=== PATIENT | male | born 1950 | race African-American/Black ===

== ENCOUNTER 2018-07-14 16:13 | Inpatient (IN) ==
[2018-07-14] MEDS ORDERED: SODIUM CHLORIDE 0.9% 500 ML IV STA (16:26)
[2018-07-14 17:16] LABS: Basophils % 0.6 % (0.0-0.8); Eosinophils # 0.1 10*3/uL (0.0-0.87); Eosinophils % 1.6 % (0.00-10.9); Hematocrit 32.5 VOL% (42.0-52.0); Hemoglobin 10.6 GM/DL (14.0-18.0); Immature Granulocytes % 0.6 %; Immature Granulocytes Absolute 0.03 #; Lymphocytes # 1.3 10*3/uL (1.4-4.0); Mean Corpuscular HGB Conc 32.6 GM/DL (32-36); Mean Corpuscular Hemoglobin 36 PG (27-34); Mean Corpuscular Volume 110.2 FL (87-102); Mean Platelet Volume 8.6 FL (9.6-12.0); Monocytes # 0.5 10*3/uL (0.11-0.8); Monocytes % 10.9 % (1.7-12.7); Neutrophils % 60.3 % (38.7-73.9); Platelet Count 183 T/CUMM (130-400); Red Blood Count 2.95 MC/CUMM (3.8-5.5); Red Cell Distribution Width 14.7 % (9.3-17.3)
[2018-07-14 17:26] LABS: INR 0.9; Partial Thromboplastin Time 26.8 SECS (0-40)
[2018-07-14] MEDS ORDERED: THIAMINE INJ 100 MG, FOLIC ACID INJ 1 MG, MAGNESIUM SULF INJ 2 GM, MULTIVITAMIN INJ 10 ... IV STA (17:34)
[2018-07-14 17:41] LABS: Alanine Aminotransferase 18 U/L (16-61); Albumin 2.8 G/DL (3.4-5.0); Alkaline Phosphatase 73 U/L (45-117); Aspartate Amino Transferase 26 U/L (0-37); Bilirubin,Total < 0.39 MG/DL (0.2-1.0); Blood Urea Nitrogen 17 MG/DL (7-18); Calcium 8.4 MG/DL (8.5-10.1); Glucose 70 MG/DL (74-106); Osmolality,Calculated 274.7 MOS/KG (273-304); Potassium 4.4 MMOL/L (3.5-5.1); Sodium 138 MMOL/L (136-145); Total Protein 6.5 G/DL (6.4-8.3); Troponin I < 0.015 NG/ML (0.00-0.045)
[2018-07-14] MEDS ORDERED: ONDANSETRON 4 MG/2 ML VIAL IV PRN (18:46)
[2018-07-14] MEDS ORDERED: ACETAMINOPHEN 325 MG TABLET PO PRN (18:46)
[2018-07-14] MEDS: SIMVASTATIN 20 MG TABLET PO SCH (21:34)
[2018-07-14] MEDS: FAMOTIDINE 20 MG/2 ML VIAL IV SCH (21:35)
[2018-07-15] MEDS ORDERED: SKIN HEALING OINT (AQUAPHOR) 50 GM TUBE TOP PRN (00:26)
[2018-07-15 02:44] LABS: Basophils % 0.4 % (0.0-0.8); Eosinophils # 0.1 10*3/uL (0.0-0.87); Hematocrit 30.8 VOL% (42.0-52.0); Hemoglobin 10.2 GM/DL (14.0-18.0); Immature Granulocytes % 0.6 %; Immature Granulocytes Absolute 0.03 #; Lymphocytes # 1.3 10*3/uL (1.4-4.0); Lymphocytes % 25.8 % (21.2-54.2); Mean Corpuscular HGB Conc 33.1 GM/DL (32-36); Mean Corpuscular Hemoglobin 36 PG (27-34); Mean Platelet Volume 9.1 FL (9.6-12.0); Monocytes # 0.5 10*3/uL (0.11-0.8); Monocytes % 9.1 % (1.7-12.7); Neutrophils # 3.3 10*3/uL (1.4-7.4); Neutrophils % 63.1 % (38.7-73.9); Platelet Count 203 T/CUMM (130-400); Red Cell Distribution Width 14.6 % (9.3-17.3); White Blood Count 5.2 T/CUMM (4-12)
[2018-07-15 03:25] LABS: Thyroid Stimulating Hormone 2.19 uIU/ml (0.358-3.74)
[2018-07-15 03:41] LABS: Alanine Aminotransferase 17 U/L (16-61); Albumin 2.9 G/DL (3.4-5.0); Alkaline Phosphatase 70 U/L (45-117); Aspartate Amino Transferase 25 U/L (0-37); Bilirubin,Total < 0.39 MG/DL (0.2-1.0); Blood Urea Nitrogen 17 MG/DL (7-18); Calcium 8.5 MG/DL (8.5-10.1); Glucose 146 MG/DL (74-106); Osmolality,Calculated 285.3 MOS/KG (273-304); Potassium 4.2 MMOL/L (3.5-5.1); Sodium 141 MMOL/L (136-145); Total Protein 6.3 G/DL (6.4-8.3)
[2018-07-15 04:28] LABS: Hepatitis A Ab IgM Quant 0.11 Index; Hepatitis A Ab IgM Result Negative (Negative); Hepatitis B Core IgM Quant 0.06 Index; Hepatitis B Core IgM Result Negative (Negative); Hepatitis B Surface Ag Quant 0.14 Index; Hepatitis B Surface Ag Result Negative (Negative); Hepatitis C Virus Ab Quant 0.12 Index; Hepatitis C Virus Ab Result Negative (Negative); Vitamin B12 754 PG/ML (211-911)
[2018-07-15] MEDS ORDERED: GLIMEPIRIDE 2 MG TABLET PO SCH ×2 (08:00)
[2018-07-15] MEDS: hydroCHLOROthiazide 12.5 MG CAPSULE PO SCH (09:04)
[2018-07-15] MEDS: FAMOTIDINE 20 MG/2 ML VIAL IV SCH ×2 (09:04→21:28)
[2018-07-15] MEDS: PANTOPRAZOLE 40 MG TABLET PO SCH (09:04)
[2018-07-15] MEDS: FERROUS SULFATE 325 MG TABLET PO SCH (09:04)
[2018-07-15] MEDS: oxyCODONE/ACETAMINOPHEN 5-325 MG TABLET PO PRN (09:06)
[2018-07-15] MEDS: THIAMINE INJ 100 MG, FOLIC ACID INJ 1 MG, MULTIVITAMIN INJ 10 ML in SODIUM CHLORIDE 0.9... IV SCH (21:24)
[2018-07-15] MEDS: SIMVASTATIN 20 MG TABLET PO SCH (21:24)
[2018-07-16 03:46] LABS: Calcium 8.6 MG/DL (8.5-10.1); Osmolality,Calculated 282.3 MOS/KG (273-304); Potassium 4.4 MMOL/L (3.5-5.1)
[2018-07-16] MEDS: oxyCODONE/ACETAMINOPHEN 5-325 MG TABLET PO PRN (05:10)
[2018-07-16] MEDS: FERROUS SULFATE 325 MG TABLET PO SCH (09:40)
[2018-07-16] MEDS: PANTOPRAZOLE 40 MG TABLET PO SCH (09:40)
[2018-07-16] MEDS: hydroCHLOROthiazide 12.5 MG CAPSULE PO SCH (09:40)
[2018-07-16] MEDS: FAMOTIDINE 20 MG/2 ML VIAL IV SCH ×2 (09:41→21:23)
[2018-07-16] MEDS: SIMVASTATIN 20 MG TABLET PO SCH (21:23)
[2018-07-16] MEDS: THIAMINE INJ 100 MG, FOLIC ACID INJ 1 MG, MULTIVITAMIN INJ 10 ML in SODIUM CHLORIDE 0.9... IV SCH (21:30)
[2018-07-17 03:40] LABS: Folate > 24.0 NG/ML (5.4-24.0); Vitamin B12 567 PG/ML (211-911)
[2018-07-17] MEDS: FAMOTIDINE 20 MG/2 ML VIAL IV SCH ×2 (08:47→20:35)
[2018-07-17] MEDS: FERROUS SULFATE 325 MG TABLET PO SCH (09:35)
[2018-07-17] MEDS: PANTOPRAZOLE 40 MG TABLET PO SCH (09:35)
[2018-07-17] MEDS: hydroCHLOROthiazide 12.5 MG CAPSULE PO SCH (09:35)
[2018-07-17] MEDS: ASPIRIN EC 81 MG TABLET PO SCH (09:35)
[2018-07-17] MEDS: SIMVASTATIN 20 MG TABLET PO SCH (20:36)
[2018-07-17] MEDS: THIAMINE INJ 100 MG, FOLIC ACID INJ 1 MG, MULTIVITAMIN INJ 10 ML in SODIUM CHLORIDE 0.9... IV SCH (22:29)
[2018-07-18 03:18] LABS: Basophils % 0.2 % (0.0-0.8); Eosinophils # 0.1 10*3/uL (0.0-0.87); Eosinophils % 2.4 % (0.00-10.9); Hematocrit 26.8 VOL% (42.0-52.0); Hemoglobin 8.6 GM/DL (14.0-18.0); Immature Granulocytes % 0.2 %; Immature Granulocytes Absolute 0.01 #; Lymphocytes # 1.4 10*3/uL (1.4-4.0); Lymphocytes % 29.7 % (21.2-54.2); Mean Corpuscular HGB Conc 32.1 GM/DL (32-36); Mean Corpuscular Hemoglobin 35 PG (27-34); Mean Corpuscular Volume 108.5 FL (87-102); Mean Platelet Volume 9.2 FL (9.6-12.0); Monocytes # 0.5 10*3/uL (0.11-0.8); Monocytes % 11.4 % (1.7-12.7); Neutrophils # 2.6 10*3/uL (1.4-7.4); Neutrophils % 56.1 % (38.7-73.9); Platelet Count 206 T/CUMM (130-400); Red Blood Count 2.47 MC/CUMM (3.8-5.5); Red Cell Distribution Width 14.3 % (9.3-17.3); White Blood Count 4.7 T/CUMM (4-12)
[2018-07-18 03:50] LABS: Calcium 8.6 MG/DL (8.5-10.1); Osmolality,Calculated 282.3 MOS/KG (273-304); Potassium 4.3 MMOL/L (3.5-5.1)
[2018-07-18] MEDS: hydroCHLOROthiazide 12.5 MG CAPSULE PO SCH (09:24)
[2018-07-18] MEDS: PANTOPRAZOLE 40 MG TABLET PO SCH (09:24)
[2018-07-18] MEDS: ASPIRIN EC 81 MG TABLET PO SCH (09:24)
[2018-07-18] MEDS: FERROUS SULFATE 325 MG TABLET PO SCH (09:24)
[2018-07-18] MEDS: FAMOTIDINE 20 MG/2 ML VIAL IV SCH ×2 (09:27→21:17)
[2018-07-18] MEDS: SIMVASTATIN 20 MG TABLET PO SCH (21:17)
[2018-07-18] MEDS: THIAMINE INJ 100 MG, FOLIC ACID INJ 1 MG, MULTIVITAMIN INJ 10 ML in SODIUM CHLORIDE 0.9... IV SCH (21:17)
[2018-07-19 03:46] LABS: Basophils % 0.4 % (0.0-0.8); Eosinophils # 0.1 10*3/uL (0.0-0.87); Eosinophils % 2.7 % (0.00-10.9); Hematocrit 26.1 VOL% (42.0-52.0); Hemoglobin 8.5 GM/DL (14.0-18.0); Immature Granulocytes % 0.4 %; Immature Granulocytes Absolute 0.02 #; Lymphocytes # 1.5 10*3/uL (1.4-4.0); Lymphocytes % 31.3 % (21.2-54.2); Mean Corpuscular HGB Conc 32.6 GM/DL (32-36); Mean Corpuscular Hemoglobin 35 PG (27-34); Mean Corpuscular Volume 107.9 FL (87-102); Mean Platelet Volume 9.5 FL (9.6-12.0); Monocytes # 0.5 10*3/uL (0.11-0.8); Monocytes % 10.5 % (1.7-12.7); Neutrophils # 2.6 10*3/uL (1.4-7.4); Neutrophils % 54.7 % (38.7-73.9); Platelet Count 244 T/CUMM (130-400); Red Blood Count 2.42 MC/CUMM (3.8-5.5); Red Cell Distribution Width 14.5 % (9.3-17.3); White Blood Count 4.8 T/CUMM (4-12)
[2018-07-19 04:09] LABS: Albumin 2.5 G/DL (3.4-5.0); Bilirubin,Total 0.6 MG/DL (0.2-1.0); Calcium 8.7 MG/DL (8.5-10.1); Osmolality,Calculated 281.3 MOS/KG (273-304); Potassium 4.3 MMOL/L (3.5-5.1); Total Protein 5.7 G/DL (6.4-8.3)
[2018-07-19] MEDS: NEBIVOLOL 5 MG TABLET PO SCH (08:48)
[2018-07-19] MEDS: PANTOPRAZOLE 40 MG TABLET PO SCH (08:48)
[2018-07-19] MEDS: FAMOTIDINE 20 MG/2 ML VIAL IV SCH ×2 (08:49→21:46)
[2018-07-19] MEDS: hydroCHLOROthiazide 12.5 MG CAPSULE PO SCH (08:49)
[2018-07-19] MEDS: FERROUS SULFATE 325 MG TABLET PO SCH (08:49)
[2018-07-19] MEDS: ASPIRIN EC 81 MG TABLET PO SCH (08:49)
[2018-07-19] MEDS ORDERED: MAGNESIUM SULF RIDER 2 GM in PREMIX 1 EACH IV PRN (09:52)
[2018-07-19] MEDS ORDERED: MAGNESIUM SULF RIDER 4 GM in PREMIX 1 EACH IV PRN (09:52)
[2018-07-19] MEDS: SIMVASTATIN 20 MG TABLET PO SCH (21:45)
[2018-07-19] MEDS: THIAMINE INJ 100 MG, FOLIC ACID INJ 1 MG, MULTIVITAMIN INJ 10 ML in SODIUM CHLORIDE 0.9... IV SCH (22:34)
[2018-07-20 08:01] LABS: Basophils % 0.4 % (0.0-0.8); Eosinophils # 0.2 10*3/uL (0.0-0.87); Eosinophils % 3.2 % (0.00-10.9); Hematocrit 25.1 VOL% (42.0-52.0); Hemoglobin 8.3 GM/DL (14.0-18.0); Immature Granulocytes % 0.4 %; Immature Granulocytes Absolute 0.02 #; Lymphocytes # 1.8 10*3/uL (1.4-4.0); Lymphocytes % 34.3 % (21.2-54.2); Mean Corpuscular HGB Conc 33.1 GM/DL (32-36); Mean Corpuscular Hemoglobin 36 PG (27-34); Mean Corpuscular Volume 109.1 FL (87-102); Mean Platelet Volume 9.4 FL (9.6-12.0); Monocytes # 0.5 10*3/uL (0.11-0.8); Monocytes % 9.6 % (1.7-12.7); Neutrophils # 2.8 10*3/uL (1.4-7.4); Neutrophils % 52.1 % (38.7-73.9); Platelet Count 246 T/CUMM (130-400); Red Cell Distribution Width 14.6 % (9.3-17.3); White Blood Count 5.3 T/CUMM (4-12)
[2018-07-20 08:33] LABS: Calcium 8.4 MG/DL (8.5-10.1); Osmolality,Calculated 282.3 MOS/KG (273-304); Potassium 4.2 MMOL/L (3.5-5.1)
[2018-07-20] MEDS: PANTOPRAZOLE 40 MG TABLET PO SCH (09:25)
[2018-07-20] MEDS: NEBIVOLOL 5 MG TABLET PO SCH (09:25)
[2018-07-20] MEDS: FAMOTIDINE 20 MG/2 ML VIAL IV SCH ×2 (09:25→20:32)
[2018-07-20] MEDS: FERROUS SULFATE 325 MG TABLET PO SCH (09:25)
[2018-07-20] MEDS: ASPIRIN EC 81 MG TABLET PO SCH (09:25)
[2018-07-20] MEDS: hydroCHLOROthiazide 12.5 MG CAPSULE PO SCH (09:25)
[2018-07-20] MEDS ORDERED: TUBERCULIN SKIN TEST 0.1 ML SYRINGE INTRADERM ONE (16:26)
[2018-07-20] MEDS: oxyCODONE/ACETAMINOPHEN 5-325 MG TABLET PO PRN (20:34)
[2018-07-20] MEDS: SIMVASTATIN 20 MG TABLET PO SCH (20:35)
[2018-07-20] MEDS: THIAMINE INJ 100 MG, FOLIC ACID INJ 1 MG, MULTIVITAMIN INJ 10 ML in SODIUM CHLORIDE 0.9... IV SCH (20:58)
[2018-07-21 08:05] LABS: Basophils % 0.4 % (0.0-0.8); Eosinophils # 0.2 10*3/uL (0.0-0.87); Eosinophils % 4.4 % (0.00-10.9); Hematocrit 25.6 VOL% (42.0-52.0); Hemoglobin 8.4 GM/DL (14.0-18.0); Immature Granulocytes % 0.2 %; Immature Granulocytes Absolute 0.01 #; Lymphocytes # 1.7 10*3/uL (1.4-4.0); Lymphocytes % 33.5 % (21.2-54.2); Mean Corpuscular HGB Conc 32.8 GM/DL (32-36); Mean Corpuscular Hemoglobin 36 PG (27-34); Mean Corpuscular Volume 108.5 FL (87-102); Mean Platelet Volume 9.5 FL (9.6-12.0); Monocytes # 0.5 10*3/uL (0.11-0.8); Monocytes % 9.5 % (1.7-12.7); Neutrophils # 2.6 10*3/uL (1.4-7.4); Platelet Count 252 T/CUMM (130-400); Red Blood Count 2.36 MC/CUMM (3.8-5.5); Red Cell Distribution Width 14.6 % (9.3-17.3)
[2018-07-21] MEDS: hydroCHLOROthiazide 12.5 MG CAPSULE PO SCH (08:12)
[2018-07-21] MEDS: PANTOPRAZOLE 40 MG TABLET PO SCH (08:12)
[2018-07-21] MEDS: ASPIRIN EC 81 MG TABLET PO SCH (08:12)
[2018-07-21] MEDS: FERROUS SULFATE 325 MG TABLET PO SCH (08:12)
[2018-07-21] MEDS: NEBIVOLOL 5 MG TABLET PO SCH (08:12)
[2018-07-21] MEDS: FAMOTIDINE 20 MG/2 ML VIAL IV SCH ×2 (08:13→20:57)
[2018-07-21] MEDS: oxyCODONE/ACETAMINOPHEN 5-325 MG TABLET PO PRN ×2 (16:02→18:03)
[2018-07-21] MEDS: SIMVASTATIN 20 MG TABLET PO SCH (20:57)
[2018-07-22 04:34] LABS: Basophils % 0.4 % (0.0-0.8); Eosinophils # 0.3 10*3/uL (0.0-0.87); Eosinophils % 4.7 % (0.00-10.9); Hemoglobin 8.1 GM/DL (14.0-18.0); Immature Granulocytes % 0.2 %; Immature Granulocytes Absolute 0.01 #; Lymphocytes # 1.5 10*3/uL (1.4-4.0); Lymphocytes % 27.8 % (21.2-54.2); Mean Corpuscular HGB Conc 32.4 GM/DL (32-36); Mean Corpuscular Hemoglobin 36 PG (27-34); Mean Corpuscular Volume 109.6 FL (87-102); Monocytes # 0.5 10*3/uL (0.11-0.8); Monocytes % 9.1 % (1.7-12.7); Neutrophils # 3.1 10*3/uL (1.4-7.4); Neutrophils % 57.8 % (38.7-73.9); Platelet Count 265 T/CUMM (130-400); Red Blood Count 2.28 MC/CUMM (3.8-5.5); Red Cell Distribution Width 14.6 % (9.3-17.3); White Blood Count 5.3 T/CUMM (4-12)
[2018-07-22 04:52] LABS: Calcium 8.9 MG/DL (8.5-10.1); Osmolality,Calculated 278.5 MOS/KG (273-304); Potassium 4.5 MMOL/L (3.5-5.1)
[2018-07-22] MEDS: PANTOPRAZOLE 40 MG TABLET PO SCH (10:08)
[2018-07-22] MEDS: FERROUS SULFATE 325 MG TABLET PO SCH (10:08)
[2018-07-22] MEDS: NEBIVOLOL 5 MG TABLET PO SCH (10:08)
[2018-07-22] MEDS: ASPIRIN EC 81 MG TABLET PO SCH (10:08)
[2018-07-22] MEDS: THIAMINE 100 MG TABLET PO SCH (10:08)
[2018-07-22] MEDS: FAMOTIDINE 20 MG/2 ML VIAL IV SCH ×2 (10:09→21:13)
[2018-07-22] MEDS: SIMVASTATIN 20 MG TABLET PO SCH (21:12)
[2018-07-23 05:06] LABS: Basophils % 0.7 % (0.0-0.8); Eosinophils # 0.3 10*3/uL (0.0-0.87); Eosinophils % 4.9 % (0.00-10.9); Hematocrit 27.2 VOL% (42.0-52.0); Hemoglobin 8.6 GM/DL (14.0-18.0); Immature Granulocytes % 0.4 %; Immature Granulocytes Absolute 0.02 #; Lymphocytes # 1.5 10*3/uL (1.4-4.0); Lymphocytes % 26.6 % (21.2-54.2); Mean Corpuscular HGB Conc 31.6 GM/DL (32-36); Mean Corpuscular Hemoglobin 34 PG (27-34); Mean Corpuscular Volume 108.4 FL (87-102); Monocytes # 0.5 10*3/uL (0.11-0.8); Monocytes % 9.7 % (1.7-12.7); Neutrophils # 3.2 10*3/uL (1.4-7.4); Neutrophils % 57.7 % (38.7-73.9); Platelet Count 295 T/CUMM (130-400); Red Blood Count 2.51 MC/CUMM (3.8-5.5); Red Cell Distribution Width 14.6 % (9.3-17.3); White Blood Count 5.6 T/CUMM (4-12)
[2018-07-23] MEDS: FERROUS SULFATE 325 MG TABLET PO SCH (09:23)
[2018-07-23] MEDS: FAMOTIDINE 20 MG/2 ML VIAL IV SCH ×2 (09:23→21:42)
[2018-07-23] MEDS: NEBIVOLOL 5 MG TABLET PO SCH (09:23)
[2018-07-23] MEDS: PANTOPRAZOLE 40 MG TABLET PO SCH (09:23)
[2018-07-23] MEDS: THIAMINE 100 MG TABLET PO SCH (09:23)
[2018-07-23] MEDS: ASPIRIN EC 81 MG TABLET PO SCH (09:23)
[2018-07-23] MEDS: SIMVASTATIN 20 MG TABLET PO SCH (21:42)
[2018-07-24 07:10] LABS: Basophils % 0.7 % (0.0-0.8); Eosinophils # 0.3 10*3/uL (0.0-0.87); Eosinophils % 4.8 % (0.00-10.9); Hematocrit 27.1 VOL% (42.0-52.0); Hemoglobin 8.6 GM/DL (14.0-18.0); Immature Granulocytes % 0.2 %; Immature Granulocytes Absolute 0.01 #; Lymphocytes # 1.7 10*3/uL (1.4-4.0); Lymphocytes % 29.8 % (21.2-54.2); Mean Corpuscular HGB Conc 31.7 GM/DL (32-36); Mean Corpuscular Hemoglobin 34 PG (27-34); Mean Corpuscular Volume 108.4 FL (87-102); Mean Platelet Volume 10.2 FL (9.6-12.0); Monocytes # 0.6 10*3/uL (0.11-0.8); Monocytes % 9.8 % (1.7-12.7); Neutrophils # 3.1 10*3/uL (1.4-7.4); Neutrophils % 54.7 % (38.7-73.9); Platelet Count 320 T/CUMM (130-400); Red Cell Distribution Width 14.6 % (9.3-17.3); White Blood Count 5.6 T/CUMM (4-12)
[2018-07-24] MEDS: ASPIRIN EC 81 MG TABLET PO SCH (09:00)
[2018-07-24] MEDS: NEBIVOLOL 5 MG TABLET PO SCH (09:00)
[2018-07-24] MEDS: PANTOPRAZOLE 40 MG TABLET PO SCH (09:01)
[2018-07-24] MEDS: FAMOTIDINE 20 MG/2 ML VIAL IV SCH (09:01)
[2018-07-24] MEDS: THIAMINE 100 MG TABLET PO SCH (09:01)
[2018-07-24] MEDS: FERROUS SULFATE 325 MG TABLET PO SCH (09:03)
[2018-07-24 16:49] VITALS: BP 125/76
== END 2018-07-24 17:34 | DRG 74 ==
LOC: EDUNIT# → N.ED 16:13 → N.EDINP 18:44 → N.TELES 20:39 → N.3E 07-21 15:07
PROVIDERS: ADMIT Internal Medicine; ATTEND Internal Medicine